=== PATIENT | male | born 1995 | race Caucasian/White ===

== ENCOUNTER 2022-03-16 13:24 | Emergency (ER) | payer SELFPAY ==
[2022-03-16] MEDS ORDERED: diphenhydrAMINE 50 MG/ML VIAL ONE (13:36)
[2022-03-16] MEDS ORDERED: methylPREDNISolone Sod Succ/PF 125 MG/2 ML VIAL ONE (13:36)
[2022-03-16] MEDS ORDERED: Famotidine/PF 20 mg/2ml Vial ONE (13:37)
== END 2022-03-16 14:33 | disposition home or self-care (01) ==
LOC: NAV ERS 13:24
DX: T63.461A Toxic effect of venom of wasps, accidental (unintentional), initial encounter (principal)
CPT/HCPCS: 96374; 96375; J1200; J2930; S0028